=== PATIENT | female | born 1975 | race Caucasian/White ===

== ENCOUNTER → 2021-08-03 | Outpatient (CLI) | payer OTHER ==
[~2021-08-03] MED LIST: ALLERGY RELIEF5 MG PO; BUPROPION XL150 MG PO; CELEXA10 MG PO; GABAPENTIN300 MG PO; OXCARBAZEPINE300 MG PO
[2021-08-03 12:17] LABS: RED BLOOD COUNT 4.31 M/UL (4.00-5.10)
[2021-08-03 12:30] LABS: HEMOGLOBIN 13.3 gm/dl (12.3-15.3); WHITE BLOOD COUNT 5.5 K/UL (4.5-11.0)
== END ==
LOC: OPSV2 11:00
PROVIDERS: Obstetrics & Gynecology
DX: Z01.812 Encounter for preprocedural laboratory examination (principal); J45.909 Unspecified asthma, uncomplicated
CPT/HCPCS: 36415; 81001; 85025

== ENCOUNTER 2021-08-16 05:17 | Day surgery (SDC) | payer OTHER ==
[~2021-08-16] VITALS: Ht 175.3 cm; Wt 72.6 kg
[2021-08-16] MEDS ORDERED: PROAIR DIGIHAL90 MCG INH (06:09)
[2021-08-16] MEDS ORDERED: NAPROSYN EC 50500 MG PO (09:51)
[2021-08-16] MEDS ORDERED: MIRALAX 119 GR119 GM PO (09:51)
[2021-08-16] MEDS ORDERED: HYDROCODON-ACE1 EAC2 PO (09:51)
[2021-08-17 03:34] LABS: HEMOGLOBIN 12.1 gm/dl (12.3-15.3)
== END 2021-08-18 14:01 | disposition home or self-care (01) ==
LOC: OR 05:17 → OB 12:41 → OR 08-18 14:01
PROVIDERS: Obstetrics & Gynecology
DX: N80.0 Endometriosis of uterus (principal); N81.4 Uterovaginal prolapse, unspecified; N39.3 Stress incontinence (female) (male); J45.909 Unspecified asthma, uncomplicated; F41.9 Anxiety disorder, unspecified; F32.A Depression, unspecified; M19.90 Unspecified osteoarthritis, unspecified site; G62.9 Polyneuropathy, unspecified; F17.299 Nicotine dependence, other tobacco product, with unspecified nicotine-induced disorders; Z20.822 Contact with and (suspected) exposure to COVID-19
CPT/HCPCS: 36415; 84703; 85014; 85018; 93005; C1769; C1771; J0690; J1100; J1170; J1200; J1885; J1940; J2001; J2250; J2405; J2704; J2710; J2765; J2795; J3010; J3475; J7120

== ENCOUNTER → 2021-12-25 | Outpatient (CLI) | payer OTHER ==
[~2021-12-25] MED LIST changes: +HYDROCODON-ACE1 EAC2 PO; +MIRALAX 119 GR119 GM PO; +NAPROSYN EC 50500 MG PO; +PROAIR DIGIHAL90 MCG INH
== END ==
LOC: KOH-I 11:41
DX: M25.571 Pain in right ankle and joints of right foot (principal)
CPT/HCPCS: 73590; 73600